=== PATIENT | male | born 2000 ===

== ENCOUNTER 2025-05-20 13:45 | Emergency (ER) | payer BC, SELFPAY ==
[2025-05-20 14:02] VITALS: BP 150/98
--- NOTE | 2025-05-20 17:08 | ED.GENMED ---
History of Present Illness
General
Chief Complaint: Male Genito-Urinary Symptoms
Source: patient
Exam Limitations: none
Time Seen by Provider: 05/20/25 16:48
Nursing documentation reviewed up to this point in time: agreed with
History of Present Illness
History of Present Illness:
25-year-old male who had bilateral inguinal hernia surgeries 11 years ago. He is here with bilateral groin pain. He states he has gained a lot of weight and last week went swimming and also has been taking walks with increasing pain in the
bilateral groin area. Earlier today when he was laying down he lifted up his left leg to pass gas and felt along with the gas pain worsening pain in the left groin area. Laying on the stretcher now he points to his mons pubis areas bilaterally,
which both areas are lower than his incisional hernia repair sites. He states at one point he had a 'string of pain' that radiated into his left testicle but this was only 1 time and has not had any since. He has no difficulty urinating or moving
his bowels.
Past History
Past History
ED Past Medical History: HTN and Psychiatric (Anxiety)
ED Past Surgical History: Other (Bilateral inguinal hernia repair)
Social History
Tobacco: Non-smoker
Alcohol: Occasional
Drug: Marijuana
Personal: Single
Living: with family
Employment: Employed
Review of Systems
Review of Systems
Allergies reviewed?: Yes
All Other Systems: ROS reviewed and negative except as documented in HPI and ROS
Constitutional: Denies fever
: Reports other (Pain bilateral areas of mons pubis)
Phy Exam
Physical Exam
Physical Exam:
GENERAL: No acute distress. A&Ox3.
CONSTITUTIONAL: Afebrile.
EYES: clear, conjunctivae normal
ENMT: moist mucus membranes
RESPIRATORY: Regular respirations, nonlabored, lungs clear.
CARDIOVASCULAR: Regular rate and rhythm, no murmurs, no rubs.
GI: Soft, nontender, normal BS
: Normal external genitalia, no scrotal tenderness or swelling or palpable masses. Immediately tender to palpat bilateral mons pubis ST, no palpable masses. Negative Cough Impulse: no protrusions of inguinal/groin areas
MUSCULOSKELETAL: Moves with ease. Well perfused.
SKIN: Warm, dry,normal
PSYCH: Normal mood and affect. Well kept, interactive and appropriate
NEUROLOGIC: Awake, alert and oriented. No focal neurological deficits
Course
Orders/Labs/Results
Orders:
Orders
05/20/25 16:58
CT Abd/Pel (IV only)-[facility] only Urgent
Comment:
Reason For Exam: bilateral groin pain prev hernia repairs
05/20/25 17:12
Basic Metabolic Panel Urgent
05/20/25 17:15
Complete Blood Count/With Diff Urgent
Abnormal Lab Results
05/20/25 05/20/25
17:12 17:15
Absolute Lymphs (auto) 4.6 H 10^3/uL
(1.2-3.4)
Carbon Dioxide 21 L mmol/L
(22-30)
05/20/25 17:15
05/20/25 17:12
Vital Signs
Initial and Last Documented VS:
Initial Vital Signs
Temp Pulse Resp BP Pulse Ox
98.7 F 76 16 150/98 97
05/20/25 14:02 05/20/25 14:02 05/20/25 14:02 05/20/25 14:02 05/20/25 14:02
Last Documented Vital Signs
Temp Pulse Resp BP Pulse Ox
98.7 F 76 16 156/99 97
05/20/25 14:02 05/20/25 14:02 05/20/25 14:02 05/20/25 20:10 05/20/25 17:09
MDM/Problems Addressed
MDM/Problems Addressed:
25-year-old male who had bilateral inguinal hernia surgeries 11 years ago. He is here with bilateral groin pain. He states he has gained a lot of weight and last week went swimming and also has been taking walks with increasing pain in the
bilateral groin area. Earlier today when he was laying down he lifted up his left leg to pass gas and felt along with the gas pain worsening pain in the left groin area. Laying on the stretcher now he points to his mons pubis areas bilaterally,
which both areas are lower than his incisional hernia repair sites. He states at one point he had a 'string of pain' that radiated into his left testicle but this was only 1 time and has not had any since. He has no difficulty urinating or moving
his bowels.
CBC, CMP normal
CAT scan with IV contrast reveals no hernias. Copy of report given to patient.
Patient ambulated out with normal gait at discharge.
*Pulse Oximetry
SaO2: 97
Oxygen Mode of Delivery: Room air
Patient hypoxic: not evaluated
*Critical Care Note
Total Time (30-74mins, 75-104mins- exclusive of procedures): Not Applicable
ED Attending Note
-
Portions of this chart may have been created with voice recognition software.� Occasional wrong word or��sound alike� substitutions may have occurred due to the inherent limitations of voice recognition software.
Discharge Plan
Departure
Patient Disposition: Home (Routine Discharge)
Date of Disposition: 05/20/25
Time of Disposition: 20:06
Patient with high blood pressure during this ER visit?: No
Condition: Good
Discharge Problem:
Groin pain
Prescriptions:
No Action
aripiprazole 10 MG tablet
10 mg PO DAILY
olanzapine 10 mg Tablet
10 mg PO DAILY
Referrals:
Alon Delgado, DO [Family Provider, Family Practice] - As needed
UNKNOWN - PT DOES,NOT KNOW [Unknown Provider]
Activity Restrictions/Additional Instructions:
As we discussed, nothing worrisome in your workup here today. Your blood work is normal, your CAT scan shows nothing abnormal, specifically no sign of hernias.
You may be experiencing musculoskeletal pain due to your increase in activities recently.
Continue to exercise regularly.
Interventions
Interventions:
*Risk Screen - Suicide Last Done: 05/20/25 17:56
*General Assessment Last Done: 05/20/25 17:56
*Neglect/Abuse Screening Last Done: 05/20/25 17:56
*ED- Fall Risk Assessment Last Done: 05/20/25 17:56
*Nursing Disposition Last Done: 05/20/25 20:24
ED-Male Genitourinary Assessment Last Done: 05/20/25 19:00
Discharge Date and Time
Discharge Date/Time: 05/20/25 20:24
Print Language: BELARUSIAN
[2025-05-20 17:33] LABS: Hematocrit 44.0 % (39.0-52.0); Hemoglobin 15.5 g/dL (13.0-18.0); Mean Corp Hgb Conc. 35.2 g/dL (33.0-37.0); Mean Corpuscular Volume 85.8 fL (80.0-94.0); Nucleated Red Blood Cells % 0 % (-); Platelet Count 323 10^3/uL (130-400); Red Cell Dist. Width 12.0 % (11.5-14.5)
[2025-05-20 17:50] LABS: Blood Urea Nitrogen 11 mg/dl (9-20); Calcium 10.2 mg/dl (8.4-10.2); Carbon Dioxide 21 mmol/L (22-30); Chloride 107 mmol/L (98-107); Glucose 84 mg/dl (70-99); Sodium 138 mmol/L (135-145); eGFR > 60.00
[2025-05-20 20:10] VITALS: BP 156/99
== END 2025-05-20 20:24 | disposition home or self-care (01) ==
LOC: EMR 13:45
PROVIDERS: Registered Nurse; EMERGENCY PHYSICIAN Emergency Medicine; FAMILY PHYSICIAN Family Medicine
DX: R10.30 Lower abdominal pain, unspecified (principal); I10 Essential (primary) hypertension; Z98.890 Other specified postprocedural states
CPT/HCPCS: 99284; 74177; 80048; 85025; Q9967